=== PATIENT | female | born 1960 | race Caucasian/White ===

== ENCOUNTER 2022-05-21 23:41 | Emergency (ER) | payer BC, MEDICAID ==
[~2022-05-21] VITALS: Ht 160 cm; Wt 80.0 kg
[2022-05-22] MEDS ORDERED: KETAMINE HCL 50 MG/ML 10ML IV ONE (02:15)
[2022-05-22] MEDS ORDERED: ONDANSETRON HCL 4MG/2ML INJ IV ONE (02:15)
[2022-05-22] MEDS ORDERED: ONDANSETRON HCL 4MG/2ML INJ IV NR (03:00)
[2022-05-22] MEDS ORDERED: KETAMINE HCL 50 MG/ML 10ML IV NR (03:00)
[2022-05-22] MEDS ORDERED: HYDR-4001 MT (04:28)
[2022-05-22] MEDS ORDERED: MORPHINE SULFATE 2 MG/ML CPJ (NOT FOR IM USE) IV ONE (04:30)
[2022-05-22 04:38] VITALS: BP 127/62
== END 2022-05-22 05:14 | disposition home or self-care (01) ==
LOC: ER 23:41
DX: S52.121A Displaced fracture of head of right radius, initial encounter for closed fracture (principal); Z98.890 Other specified postprocedural states; W01.0XXA Fall on same level from slipping, tripping and stumbling without subsequent striking against object, initial encounter; Y93.89 Activity, other specified; Y92.520 Airport as the place of occurrence of the external cause; Y99.8 Other external cause status
CPT/HCPCS: 73030; 73070; 96374; 96375; 99152; 99285; J2270; J2405; J3490; Z7610; A4565